=== PATIENT | female | born 1970 | race American Indian/Alaskan Native ===

== ENCOUNTER 2017-01-29 12:46 | Outpatient (CLI) | payer OTHER ==
--- NOTE | 2017-01-29 13:24 | XRay Report ---
Lumbar spine: Pain. Traction spurs are noted at the superior margins of L3-L5 and the inferior margin of L2. The interspaces appear generally preserved as does the vertebral height. There is normal alignment. The bones are relatively well-mineralized. Impressions: Multilevel spondylosis. No acute findings.
--- NOTE | 2017-01-29 13:31 | XRay Report ---
Right knee: Pain. There is a 2.5 cm vertical concave contour deformity involving the margin of the medial condyle. The characteristics or chronic. There are periarticular spurs at the joint space. The joint space probably narrowed although the articular margins are smooth. In the lateral projection there are couple small calcifications projecting in the anterior joint space however I cannot identify these on the AP projection. There is some suspicion that they are near the medial eminence. There is normal alignment of the knee. The bones are well-mineralized. Impressions: 1. Medial condylar deformity. Any history of surgery? 2. Degenerative medial joint compartment changes. 3. Possible anterior loose body.
== END 2017-01-29 12:47 | disposition home or self-care (01) ==
LOC: XRAY 12:46
PROVIDERS: ATTEND Internal Medicine
DX: M47.897 Other spondylosis, lumbosacral region (principal); F20.9 Schizophrenia, unspecified; F22 Delusional disorders; F81.9 Developmental disorder of scholastic skills, unspecified; F32.9 Major depressive disorder, single episode, unspecified; M25.861 Other specified joint disorders, right knee; R45.4 Irritability and anger; S89.91XA Unspecified injury of right lower leg, initial encounter; X58.XXXA Exposure to other specified factors, initial encounter; Y93.89 Activity, other specified; Y92.89 Other specified places as the place of occurrence of the external cause; Y99.8 Other external cause status
CPT/HCPCS: 72100

== ENCOUNTER 2022-03-18 18:04 | Emergency (ER) | payer SELFPAY ==
--- NOTE | 2022-03-19 04:50 | XRay Report ---
Lumbar spine, 2 views HISTORY: Back pain COMPARISON: 01/29/2017 FINDINGS: Mild right convex curvature. Alignment is normal. Vertebral body heights are maintained. No evidence of fracture. Mild multilevel disc degenerative changes, greatest at L2-L3. SI joints are in tact. Soft tissues are unremarkable. IMPRESSION: No acute findings. Signer Name: Himanshu Palm MD Signed: 03/19/2022 4:46 AM Workstation Name: [id number]
--- NOTE | 2022-03-19 04:52 | XRay Report ---
Right knee, 3 views HISTORY: Knee pain COMPARISON: 01/29/2017 FINDINGS: Moderate-severe tricompartmental osteoarthritis of the right knee, preferentially involving the medial compartment. No acute fracture or joint effusion. Signer Name: Himanshu Palm MD Signed: 03/19/2022 4:47 AM Workstation Name: [id number]
--- NOTE | 2022-03-19 06:24 | Emergency Department Report ---
ED Fall HPI - General Chief Complaint: Pain General Stated Complaint: PAIN LEG/NECK/BACK/KNEE/HAND Time Seen by Provider: 03/19/22 04:00 Source: patient Mode of arrival: Ambulatory - History of Present Illness Initial Comments: 52-year-old female Nancie emerged department complaining of a mechanical trip and fall in her home for about 12 hours or so prior to arrival landing on her right side hitting her knee and her back resulting in pain to the knee and back for which she presents emergency department seeking evaluation. No numbness or tingling, no loss of bowel bladder, no saddle paresthesia, no hematuria, no dysuria, no headache no head trauma, no loss of consciousness, no neck pain. MD Complaint: fall Place Fall Occurred: home Loss of Consciousness: none Prolonged Down Time?: no Symptoms Prior to Fall: none Location: head Location - Extremities: Right: Knee Quality: dull, aching Associated Symptoms: denies. denies: neck pain, numbness, shortness of breath, abdominal pain, lightheaded, vertigo, confusion - Related Data Previous Rx's Medication Instructions Recorded Last Taken Type Meloxicam [Mobic] 7.5 mg PO QDAY #14 tablet 03/19/22 Unknown Rx Allergies Allergy/AdvReac Type Severity Reaction Status Date / Time No Known Allergies Allergy Verified 03/18/22 20:18 ED Review of Systems ROS: Stated complaint: PAIN LEG/NECK/BACK/KNEE/HAND Other details as noted in HPI Comment: All other systems reviewed and negative ED Past Medical Hx - Past Medical History Previous Medical History?: Yes Hx Hypertension: Yes - Surgical History Past Surgical History?: No - Social History Smoking Status: Never Smoker Substance Use Type: None - Medications Home Medications: Home Medications Medication Instructions Recorded Confirmed Last Taken Type Meloxicam [Mobic] 7.5 mg PO QDAY #14 tablet 03/19/22 Unknown Rx ED Physical Exam - General Limitations: No Limitations General appearance: alert, in no apparent distress - Head Head exam: Present: atraumatic, normocephalic - Eye Eye exam: Present: normal appearance, PERRL, EOMI Pupils: Present: normal accommodation - ENT ENT exam: Present: normal exam, normal orophraynx, mucous membranes moist, TM's normal bilaterally - Neck Neck exam: Present: normal inspection, full ROM - Respiratory Respiratory exam: Present: normal lung sounds bilaterally. Absent: respiratory distress, wheezes, rales, chest wall tenderness, accessory muscle use - Cardiovascular Cardiovascular Exam: Present: regular rate, normal rhythm. Absent: systolic murmur, diastolic murmur, rubs, gallop - GI/Abdominal GI/Abdominal exam: Present: soft, normal bowel sounds - Extremities Exam Extremities exam: Present: normal inspection, tenderness (Tenderness to the right nasal swelling small abrasion is noted. Small abrasion to the upper tibia as well. Full range of motion is noted there is some crepitus present. No popliteal masses present. Pulses 2+ capillary refills are brisk. No si gnificant laceration or ecchymosis appreciated.) - Back Exam Back exam: Present: normal inspection, tenderness, paraspinal tenderness. Absent: CVA tenderness (R), CVA tenderness (L), muscle spasm, vertebral tenderness - Neurological Exam Neurological exam: Present: alert, oriented X3 - Psychiatric Psychiatric exam: Present: normal affect, normal mood - Skin Skin exam: Present: warm, dry, intact, normal color. Absent: rash ED Course Vital Signs 03/18/22 20:12 Temperature 97.9 F Pulse Rate 109 H Respiratory 18 Rate Blood Pressure 129/90 [Right] O2 Sat by Pulse 99 Oximetry ED Medical Decision Making - Radiology Data Radiology results: report reviewed [address] [address] XRay Report Signed Patient: JAMIR HEALY MR#: [id number] : 1970 Acct:[id number] Age/Sex: 52 / F ADM Date: 03/18/22 Loc: ED Attending Dr: Ordering Physician: LAURY CAMARENA Date of Service: 03/19/22 Procedure(s): XR knee 3V RT Accession Number(s): [id number] cc: LAURY CAMARENA Fluoro Time In Minutes: Right knee, 3 views HISTORY: Knee pain COMPARISON: 01/29/2017 FINDINGS: Moderate-severe tricompartmental osteoarthritis of the right knee, preferentially involving the medial compartment. No acute fracture or joint effusion. Signer Name: Viky Palm MD Signed: 03/19/2022 4:47 AM Workstation Name: [id number] Transcribed By: [facility] Dictated By: VIKY PALM MD Electronically Authenticated By: VIKY PALM MD Signed Date/Time: 03/19/22446 DD/ 6 TD/TT: - Medical Decision Making [address] [address] XRay Report Signed Patient: JAMIR HEALY MR#: [id number] : 1970 Acct:[id number] Age/Sex: 52 / F ADM Date: 03/18/22 Loc: ED Attending Dr: Ordering Physician: LAURY CAMARENA Date of Service: 03/19/22 Procedure(s): XR spine lumbosacral 2-3V Accession Number(s): [id number] cc: LAURY CAMARENA Fluoro Time In Minutes: Lumbar spine, 2 views HISTORY: Back pain COMPARISON: 01/29/2017 FINDINGS: Mild right convex curvature. Alignment is normal. Vertebral body heights are maintained. No evidence of fracture. Mild multilevel disc degenerative changes, greatest at L2-L3. SI joints are intact. Soft tissues are unremarkable. IMPRESSION: No acute findings. Signer Name: Viky Palm MD Signed: 03/19/2022 4:46 AM Workstation Name: [id number] Transcribed By: Dictated By: VIKY PALM MD Electronically Authenticated By: VIKY PALM MD Signed Date/Time: 03/19/22445 DD/ 4 TD/TT: [address] [address] XRay Report Signed Patient: JAMIR HEALY MR#: [id number] : 1970 Acct:[id number] Age/Sex: 52 / F ADM Date: 03/18/22 Loc: ED Attending Dr: Ordering Physician: LAURY CAMARENA Date of Service: 03/19/22 Procedure(s): XR knee 3V RT Accession Number(s): [id number] cc: LAURY CAMARENA Fluoro Time In Minutes: Right knee, 3 views HISTORY: Knee pain COMPARISON: 01/29/2017 FINDINGS: Moderate-severe tricompartmental osteoarthritis of the right knee, preferentially involving the medial compartment. No acute fracture or joint effusion. Signer Name: Viky Palm MD Signed: 03/19/2022 4:47 AM Workstation Name: [id number] Transcribed By: [facility] Dictated By: VIKY PALM MD Electronically Authenticated By: VIKY PALM MD Signed Date/Time: 03/19/22446 DD/ 6 TD/TT: Critical care attestation.: If time is entered above; I have spent that time in minutes in the direct care of this critically ill patient, excluding procedure time. ED Disposition Clinical Impression: Back contusion, Tricompartment osteoarthritis of right knee Disposition: HOME / SELF CARE / HOMELESS Is pt being admited?: No Does the pt Need Aspirin: No Condition: Stable Instructions: How to Use Cold Therapy, [id number], Osteoarthritis, Back Injury Prevention, [id number], How to Use Cold Therapy Prescriptions: Meloxicam [Mobic] 7.5 mg PO QDAY #14 tablet Referrals: [facility] [Provider Group] - 3-5 Days
[2022-03-19 06:26] VITALS: BP 121/83
== END 2022-03-19 06:26 | disposition home or self-care (01) ==
LOC: ED 18:04
DX: S30.0XXA Contusion of lower back and pelvis, initial encounter (principal); M17.11 Unilateral primary osteoarthritis, right knee; W19.XXXA Unspecified fall, initial encounter; Y93.89 Activity, other specified; Y92.89 Other specified places as the place of occurrence of the external cause; Y99.8 Other external cause status
CPT/HCPCS: 72100; 99283